=== PATIENT | male | born 1935 | race Caucasian/White ===

== ENCOUNTER 2018-05-08 18:37 | Inpatient (IN) | payer MEDICARE ==
[~2018-05-08] VITALS: Ht 180.3 cm; Wt 68.4 kg
[~2018-05-08 18:37] MED LIST: ASPIR-TRIN325 MG PO; CENTRUM SILVER1 EAC3 PO; CIALIS20 MG PO; CLARITIN10 M2 PO; CO-Q10; COQ-10100 MG PO; FLONASE ALLERG9.9 ML NAS; FLUOXETINE HCL20 MG PO; HYDROCHLOROTHIA25 MG PO; LOSARTAN POTASS50 MG PO; METFORMIN HCL500 M2 PO; OMEGA-3100 MG PO; PRAVACHOL80 MG PO; PRILOSEC OTC20 MG PO; SAW PALMETTO450 MG PO; VITAMIN D-32000 UNI1 PO
--- NOTE | 2018-05-09 00:06 | NUR ---
VITALS DONE AND CHARTED. CHANGED HIS ATTENDS.
--- NOTE | 2018-05-09 00:20 | NUR ---
PT ARRIVED FROM ER ON GOURNEY AND WAS ASSISTED INTO HOSPITAL BED. PT WEARTING 3LPNC AND STATES HE WEARS THIS CHRONICALY AT HOME. PT ASSESSMENT COMPLETED AND PT STATES HE IS COMFORTABLE AFTER BEING GIVEN WARM BLANKETS. CALL LIGHT AND H20 IN REACH.
--- NOTE | 2018-05-09 03:05 | NUR ---
PT ASSISTED IN SITTING UP AT SIDE OF BED TO URINATE. PT VOIDS QS CLEAR YELLOW URINE AND REQUIRED 1 PERSON ASSIST BACK INTO POSITION IN BED. PT REPORTS INCREASED RIB PAIN SO PO OPIOD ADMINISTERED. CALL LIGHT/H20 INR EACH AND PT DENIES FURTHER NEEDS.
--- NOTE | 2018-05-09 04:10 | NUR ---
PT RESTING IN BED EYES CLOSED AND RESPIRATIONS EVEN AND UNLABORED AT 16. PT REMAINS ON 3LPNC AND APPEARS TO BE SLEEPING COMFORTABLY. PT ALERT TO VOICE AND ASSESSMENT COMPLETED. CALL LIGHT AND H20 IN REACH AND PT DENIES PAIN/SOB OR HAVING ANY NEEDS AT THIS TIME.
--- NOTE | 2018-05-09 06:28 | NUR ---
PT NEW ADMIT FROM ER. HERE FOR FALL SUSTAINED 5-7 DAYS AGO. PT REPORTS TRIPPING OVER DOG. DIAGNOSED WITH BILAT RIB FRACTURES AND DEHYDRATION. PT HAS RIB PAIN WITH MOVEMENT.PT ON 3LPNC THIS IS CHRONIC. PAIN MANAGED WITH PRN PO OPIOD. PT HAS BILAT ATELECTASIS SO WAS ENCOURAGED IN USE OF INCENTIVE SPIROMETER. PT HAS HISTORY OF PAST CVA WITH RESIDUAL DYSPHAGIA WITH COUGHING AFTER EATING, PT STATES THE RIB PAIN WITH COUGHING CAUSED HIM TO EAT LESS AND REPORTS GENERALIZED WEAKNESS. PT APPEARED TO HAVE SLEPT WELL THROUGH THE NIGHT. VOIDS QS CLEAR YELLOW URINE OUTPUT. PT HAS NOT YET BEEN OUT OF BED SINCE ADMISSION. 20 GA IV TO LAC INFUSING D5 1/2 NS AT 100ML/HR. PT IS TYPE 2 DIABETIC AND HAS ACHS BS CHECKS. KEEP ENCOURAGING PT TO USE IS 10X PER HOUR WHILE AWAKE.
--- NOTE | 2018-05-09 07:05 | NUR ---
SHIFT REPORT RECEIVED FROM STUNT DOUBLE RN AT BEDSIDE. PATIENT APPEARS SLEEPING, RESPIRATIONS ARE EVEN AND UNLABORED. CALL LIGHT WITHIN REACH.
--- NOTE | 2018-05-09 07:51 | NUR ---
MORNING ASSESSMENT AND ROUTINE MEDICATIONS ADMINISTERED AT THIS TIME. PATIENT IS RESTING IN BED AND WATCHING TELEVISION. CALL LIGHT WITHIN REACH.
--- NOTE | 2018-05-09 08:00 | NUR ---
PATIENT COMPLAINED OF INCREASED PAIN IN THE BILATERAL RIBS. 1 NORCO ADMINISTERED, PATIENT IS NOW IN CHAIR WITH 1 PERSON ASSIST AND IS EATING BREAKFAST. PATIENT DENIES FURTHER REQUESTS, CALL LIGHT WITHIN REACH.
--- NOTE | 2018-05-09 08:07 | NUR ---
THIS FILLING STATION EQUIPMENT MECHANIC OFFERED AM CARE TO PATIENT, PATIENT REFUSED CARE. RN IN ROOM. SHOWER OPTIONS DISCUSSED WITH PATIENT, PATIENT REFUSING AT THIS TIME. THIS FILLING STATION EQUIPMENT MECHANIC DISCUSSED WITH RN TO REATTEMPT AT A LATER TIME. NO OTHER NEEDS AT THIS TIME. CALL LIGHT IN REACH.
[2018-05-09] MEDS ORDERED: PROZAC10 MG PO (09:15)
--- NOTE | 2018-05-09 09:41 | NUR ---
SPOKE WITH PATIENT IN ROOM. PATIENT IS UP IN CHAIR EATING BREAKFAST WITHOUT HELP. PATIENT LIVES ALONE. STATES HE COULDN'T GET OUT OF BED DUE TO PAIN IN HIS "RIBS". DISCUSSED THAT HE IS WEAK AND WILL BE GETTING THERAPY ORDERED TO SEE WHAT HE NEEDS TO RETURN TO HIS NORMAL STATE OF HEALTH. HE IS IN AGREEMENT THAT HE IS VERY WEAK. DISCUSSED OPTIONS FOR DISCHARGE. PATIENT REFUSES TO CONSIDER REHAB STAY AND SNF. HE STATES HIS DAUGHTER WANTS HIM TO COME HOME WITH HER AND STAY UNTIL HE IS STRONGER. HE STATES HIS DAUGHTER IS A NURSE AND LIVES LOCALLY. PATIENT STATES HE STILL DRIVES AND IS ABLE TO TAKE CARE OF HIMSELF NORMALLY. NO FURTHER QUESTIONS AT THIS TIME.
--- NOTE | 2018-05-09 10:25 | NUR ---
NEW TELEMETERY BATTERY REPLACED. PATIENT IN SINUS RHYTHM. CALL LIGHT ELISA GILLESPIE.
--- NOTE | 2018-05-09 10:50 | NUR ---
PATIENT'S DAUGHTER LEIGH ANN CALLED TO RECIEVE UPDATE. LEIGH ANN WILL BE VISITNG PATIENT SOON AND WILL BE BRINGING PATIENT'S GLASSES.
--- NOTE | 2018-05-09 12:31 | NUR ---
MET WITH DAUGHTER OF PT. SHE IS CONCERNED ABOUT CARE FOR HER FATHER AFTER [facility]. PT HAS LOOKED INTO [facility] AND SAID HE WOULD GO THERE-SHE NEEDED ME TO GIVE HER PERMISSION TO LET HIM GO THERE RATHER THAN HAVE HIM IN HER HOME. SHE REQUESTED PRAYER, AND I PASSED THIS ON TO DIAMANTE FOR HELP WITH DC. WILL FOLLOW NEEDED
--- NOTE | 2018-05-09 12:32 | NUR ---
SPOKE WITH PATIENT AND DAUGHTER IN ROOM. PATIENTS DAUGHTER STATES SHE DOES NOT HAVE ABILITY FOR PATIENT TO COME TO HER HOUSE AT THIS TIME. SHE STATES PATIENT HAS LOOKING INTO MOVING TO [facility]. PATIENT STATES THAT WAS TRUE. HE THEN ASKED HER A FEW TIMES "I THOUGHT YOU SAID I SHOULD COME THERE" DAUGHTER EXPLAINED THAT SHE IS WORKING VARNISHING UNIT TOOL SETTER AND NO ONE WOULD BE AROUND ALL THE TIME AND HIS BEST PLACE WOULD BE [facility] THEN THEY CAN VISIT ANYTIME BUT HE WOULD HAVE OTHERS AROUND WHEN HE NEEDS HELP. PATIENT RELUCTANT TO AGREE. STILL REFUSING SKILLED REHAB FACILITY. DAUGHTER ASKED TO TALK WITH ME OUTSIDE OF ROOM. SHE STATES PATIENTS HOME IS FILLED AROUND WASTE HIGH WITH [place]BRIS. SHE STATES HE LAYS ON TOP OF GARBAGE. HE HAS URINE BOTTLES EVERYWHERE. SHE STATES HE HAS A VERY SMALL PATH BUT YOU HAVE TO CLIMB OVER GARBAGE TO GET ANYWHERE. SHE STATES IT IS NOT HEALTHY NOR SAFE. SHE STATES HER IS NOT AGREEABLE TO HER BRINGING PATIENT HOME PERMAMENTLY. SHE STATES SHE IS NOT ON HIS FINANCES OR HAVE POA. SHE STATES PATIENT KEEPS TELLING HER HE WANTS TO DO THIS, BUT NEVER FINISHES THE PLAN. WE DISCUSSED THAT HIS THERAPY RESULTS WILL DETERMINE WHAT HE WILL QUALIFY FOR. I ENCOURAGED HER TO CALL [facility] AND TO CONTINUE TO SPEAK WITH PATIENT IN REGARDS TO THIS. DAUGHTER SANTOSH STATES PATIENT HAS GONE AMA BEFORE, THAT HE KNOWS HE CAN DO THIS SO SHE IS WORRIED HE MIGHT DO THAT ONCE HE THINKS HE FEELS A LITTLE BETTER. I EXPLAINED I COULD NOT STOP HIM FROM THAT. THAT WE WILL CONTINUE TO ENCOURAGE HIM TO STAY UNTIL SAFE DISCHARGE.
--- NOTE | 2018-05-09 12:32 | NUR ---
PATIENT REPORTED PAIN IS CLIMBING AND RATED PAIN A 10/10 WITH MOVEMENT. PATIENT IS RESTING IN CHAIR, WATCHING TELEVISION, AND VISITING WITH DAUGHTER. AFTERNOON ASSESSMENT COMPLETE. CALL LIGHT WITHIN REACH.
[2018-05-09] MEDS ORDERED: PRESERVISION A1 EAC3 PO (12:34)
--- NOTE | 2018-05-09 12:35 | NUR ---
MED REC COMPLETE
--- NOTE | 2018-05-09 14:01 | NUR ---
HUA DHILLON CALLED THIS NUCLEAR ENGINEER TO ASSIST HER IN PATIENT'S ROOM. PATIENT SITTING UP ON FLOOR BY BATHROOM. THIS NUCLEAR ENGINEER CALLED RN AND OTHER NUCLEAR ENGINEER'S FOR ASSISTANCE. PATIENT STATES HE HAD TRIED TO WALK TO RETRIEVE HIS URINAL AND BUMPED INTO THE BED, LANDED ON THE BED, AND SLID ONTO THE FLOOR. PATIENT DENIES HITTING HIS HEAD OR ANY PAIN. PATIENT STATES HE HAD BEEN ON THE FLOOR FOR APPROXIMATELY 5 MINUTES BUT HAD NOT CALLED FOR ASSISTANCE. PATIENT APPEARS TO BE ORIENTED AND DOES NOT SHOW ANY SIGNS OF DISTRESS. THIS NUCLEAR ENGINEER AND MICROARRAY ANALYST, CRYSTAL SHARP, HUA CARVAJAL AND HUA DHILLON ASSISTED PATIENT INTO A SASKIA LIFT AND LIFTED PATIENT OFF OF FLOOR ONTO BED. PATIENT HAD LARGE COFFEE SPILL ON HIS GOWN BUT STATES HE DID NOT GET BURNED THE COFFEE WAS COLD. PATIENT CHANGED INTO CLEAN GOWN, VITALS TAKEN. RN IN ROOM FOR ASSESSMENT. BED ALARM ON AT THIS TIME.
--- NOTE | 2018-05-09 14:11 | NUR ---
I walked by pt room with another staff memeber. pt was on floor. pt was sitting against wall. pt said he was not hurt. pt was told not to move. RN immediately notified. pt lifted back to bed with juan miguel. vitals were takem. Doctor came assest pt. pt is resting in bed safely with bed alarm on. call light within reach.
--- NOTE | 2018-05-09 14:20 | NUR ---
NOTIFIED BY CHEMICAL HANDLER THAT PATIENT HAD FALLEN. FULL PHYSICAL ASSESSMENT SHOWED NO CHANGE IN PHYSICAL STAUS. NO BRUISES, BUMPS, OR EDEMA NOTED FOLLOWING ASSESSMENT. PATIENT IS A/O X3. PATIENT DENIES INCREASE IN BILATERAL RIB PAIN COMPARED TO MORNING ASSESSMENT FINDINGS. PATIENT IS IN BED, CALL LIGHT WITHIN REACH, BED ALARM ON.
--- NOTE | 2018-05-09 15:01 | NUR ---
PATIENT STATES HE HAS NOT URINATED NOR DOES HE FEEL THE NEED TO GO AT THIS TIME. PATIENT REFUSING TO TRY. RN NOTIFIED.
--- NOTE | 2018-05-09 15:45 | NUR ---
DAUGHTER SANTOSH CALLED AND STATED SHE SPOKE WITH [facility] AND THEY CAN EVALUATE HIM ON Saturday. UPDATED STAFF.
--- NOTE | 2018-05-09 16:28 | NUR ---
THIS TIPPLE ENGINEER ASSISTED PATIENT UP INTO SHOWER. PATIENT SHOWERED WITH ASSISTANCE, HAIR SHAMPOOED AND COMBED, PATIENT PERFORMED PERICARE. PATIENT DRESSED IN CLEAN GOWN, BACK IN BED, CALL LIGHT IN REACH, BED ALARM ON. NO OTHER NEEDS AT THIS TIME.
--- NOTE | 2018-05-09 16:30 | NUR ---
ASSESSMENT COMPLETE AT THIS TIME. PATIENT COMPLAINED OF INCREASING PAIN RATED 6/10, 1 NORCO ADMINISTERED. TELEMETERY DISCONTINUED PER MD ORDER. BLOOD SUGAR CHECK WITH RESULTS OF 127, NO INSULIN HUMALOG INDICATED PER SLIDING SCALE. PATIENT RESTING IN CHAIR, CHAIR ALARM ATTACHED.
--- NOTE | 2018-05-09 17:33 | NUR ---
PATIENT SITTING UP IN BEDSIDE RECLINER, EATING DINNER. CHAIR ALARM ON. CALL LIGHT IN REACH. NO OTHER NEEDS AT THIS TIME.
--- NOTE | 2018-05-09 18:00 | NUR ---
PATIENT IS A/O X3. PATIENT HAS GENERALIZED WEAKNESS AND IS VERY SLOW TO MOVE DUE TO BILATERAL RIB FRACTURES. PATIENT RATES PAIN 1/10 WHEN SITTING STILL, BUT PAIN INCREASES DRAMATICALLY WITH MOVEMENT. PO NORCO ADMINISTERED Q4H PRN. PATIENT IS A 1 PERSON ASSIST WITH USE OF FWW. PATIENT IS ON ADA DIET, BLOOD SUGARS HAVE BEEN WNL OR SLIGHTLY ELEVATED THROUGHOUT THE DAY. PATIENT FELL IN THE AFTERNOON, BUT NO EDEMA, BRUISES, OR BUMPS WERE NOTED. PATIENT ALSO DENIED INCREASED RIB PAIN FOLLOWING HIS FALL.
--- NOTE | 2018-05-09 20:45 | NUR ---
PT RESTING IN CHAIR, PT ASSISTED INTO BED WITH ONE PERSON ASSIST. ASSESSMENT COMPLETED. PT GIVEN FRESH WATER AND CALL LIGHT INR EACH. FAMILY AT BEDSIDE.
--- NOTE | 2018-05-09 22:20 | NUR ---
pt assisted in sitting up at bedside to use urinal. pt voids clear yellow urine and assisted back into bed. call light/h20 inr each.
--- NOTE | 2018-05-09 23:06 | NUR ---
PT RESTING SUPINE IN BED, EYES CLOSED AND APPEARS TO BE SLEEPING COMFORTABLY.
--- NOTE | 2018-05-10 02:08 | NUR ---
PT ASSISTED TO STAND AND USE THE URINAL AT BEDSIDE. PT REQUESTS JELLO AND CRACKERS. SF JELLO AND 1 PACK OF CRACKERS PROVIDED. DENIES FURTHER NEEDS AT THIS TIME. CALL LIGHT WITHIN REACH.
--- NOTE | 2018-05-10 04:15 | NUR ---
PT ASSISTED UP TO USE RESTROOM WITH 2PERSON ASSIST. PT VOIDS CLEAR YELLOW URINE IN HAT. PT ASSISTED INTO CHAIR PER HIS REQUEST. CHAIR ALARM PLACED ON PT. CALL LIGHT AND H20 IN REACH.
--- NOTE | 2018-05-10 05:25 | NUR ---
IN TO CHECKE ON PT D/T CHAIR ALARM ALARMING. PT STATES HE IOS READY TO GET BACK INTO BED. PT REMINDID TO USE CALL LIGHT WHEN HE WOULD LIKE TO GET UP SO HE CAN BE ASSITED. PT ASSISTED BACK INTO BED AND DENIES HAVING ANY FURHTER REQUESTS. IVF CONTINUES TO INFUSE. CALL LIGHT/H20 IN REACH AND BED ALARM ON.
--- NOTE | 2018-05-10 06:06 | NUR ---
PT VERBALIZES WHAT HE WOULD LIKE FOR BREAKFAST. PT ALSO STATES HE TAKES LOSARTAN AND HCTZ AT HOME CHRONICALLY FOR BP. WILL NOTIFY DAYSHIFT RN OF THIS. CALL LIGHT AND H20 IN REACH. PT DENIES FURTHER NEEDS.
--- NOTE | 2018-05-10 06:08 | NUR ---
PT SLEPT ON AND OFF THROUGH THE NIGHT, UP MULTIPLE TIMES TO VOID. PT REPORTS INCREASED PAIN WITH MOVEMENT AND DOES NOT ALWAYS USE CALL LIGHT APROPRIATLEY SO BED ALARM AND CHAIR ALARM WERE USED. PT VOIDED QS CLEAR YELLOW U/O. MAINTENANCE FLUIDS CONTINUE TO INFUSE. PT REMAINS 1 PERSON ASSIST. Heidi ANN RA DENIES SOB,NAUSEA. PT CONTINUES ACHS BLOOD GLUCOSE CHECKS AND WAS 179 AT HS BS CHECK AND RECEIVED 3 UNITS SS INSULIN.
--- NOTE | 2018-05-10 07:22 | NUR ---
SHIFT REPORT RECEIVED FROM HYPO SPLASHER RN AT BEDSIDE. PATIENT SITTING IN CHAIR WATCHING TELEVISION. TAG ALARM ON AND DENIES FURTHER REQUESTS AT THIS TIME. CALL LIGHT WITHIN REACH.
--- NOTE | 2018-05-10 08:30 | NUR ---
MORNING ASSESSMENT AND ROUTINE MEDICATIONS ADMINISTERED. PATIENT RESTING IN CHAIR, EATING BREAKFAST AND WATCHING TELEVISION, CALL LIGHT WITHIN REACH.
--- NOTE | 2018-05-10 08:34 | NUR ---
MORNING BLOOD GLUCOSE RESULT OF 141. ONE UNIT OF INSULIN HUMALOG ADMINISTERED.
--- NOTE | 2018-05-10 08:50 | NUR ---
PATIENT COMPLAINED OF INCREASING PAIN. PAIN RATED A 3/10, BUT IS "WORSE WHENEVER I MOVE". 1 NORCO ADMINISTERED. CALL LIGHT WITHIN REACH.
--- NOTE | 2018-05-10 09:20 | NUR ---
MORNING ASSESSMENT AND ROUTINE MEDICATIONS ADMINISTERED AT THIS TIME. IN ROOM WITH PATIENT. PATIENT'S RESPIRATIONS CONTINUE TO BE EVEN AND UNLABORED. PATIENT OPENS EYES TO COMMAND AT TIMES, BUT DOES NOT COMPLY WITH ALL REQUESTS. SCHEDULED MIRALAX AND COLACE NOT ADMINISTERED. PATIENT HAD HAD RECENT BOWEL MOVEMENT. CALL LIGHT WITHIN REACH.
--- NOTE | 2018-05-10 10:19 | NUR ---
pt finished working with PT and is now back in bed resting safely with call light in reach and bed alarm on.
--- NOTE | 2018-05-10 11:00 | NUR ---
PATIENT RESTING IN CHAIR, WATCHING TELEVISION. CALL LIGHT WITHIN REACH. NO FURTHER REQUESTS AT THIS TIME.
--- NOTE | 2018-05-10 12:50 | NUR ---
PATIENT COMPLAINING OF INCREASING PAIN. PAIN RATED A 3/10 BUT INCREASES WITH MOVEMENT. ONE NORCO ADMINISTERED. LUNCH BLOOD GLUCOSE RESULT OF 145, ONE UNIT OF INSULIN HUMALOG ADMINISTERED. PATIENT EATING LUNCH, CALL LIGHT WITHIN REACH.
--- NOTE | 2018-05-10 13:03 | NUR ---
SPOKE WITH PATIENT'S DAUGHTER LEIGH ANN OVER THE PHONE AND GAVE VERBAL UPDATE PER DAUGHTER'S REQUESTS. ALL QUESTIONS ANSWERED APPROPERIATELY.
--- NOTE | 2018-05-10 14:00 | NUR ---
PATIENT RESTING IN BED WATCHING TELEVISION. CALL LIGHT WITHIN REACH. BED ALARM ON.
--- NOTE | 2018-05-10 14:30 | NUR ---
AFTERNOON ASSESSMENT COMPLETE. NO CHANGES NOTED FROM MORNING ASSESSMENT. PATIENT IS A/O X4. LUNG SOUNDS ARE CLEAR IN BILATERAL UPPER AND LOWER LOBES. S1 AND S2 NOTED. RADIAL AND PEDAL PULSES ARE STRONG BILATERALLY. PATIENT RATES PAIN AT 1/10. PATIENT IN BED WATCHING TELEVISION, BED ALARM ON.
--- NOTE | 2018-05-10 14:48 | NUR ---
HELPED CHARGE NURSE MOVE PATIENT FROM ROOM 119 TO ROOM 111. BED ALARM ON ALSO PRESSURE ALARM IS PLACE IN HIS CHAIR.
--- NOTE | 2018-05-10 14:57 | NUR ---
PATIENT REFUSED SHOWER.
--- NOTE | 2018-05-10 16:03 | NUR ---
BROUGHT HIM SOME COFFEE AND ICE WATER. PATIENT IS NOW SITTING UP IN HIS CHAIR. WITH PRESSURE ALARM ON.
--- NOTE | 2018-05-10 17:17 | NUR ---
DINNER TIME BLOOD GLUCOSE RESULT OF 176. THREE UNITS OF INSULIN HUMALOG ADMINISTERED. PATIENT IN CHAIR EATING DINNER AND WATCHING TELEVISION, TAG ALARM ON. PATIENT DENIES FURTHER NEEDS. CALL LIGHT WITHIN REACH.
--- NOTE | 2018-05-10 17:48 | NUR ---
PATIENT HAS BEEN A/O X4 ALL SHIFT. LUNG SOUNDS CLEAR BILATERALLY IN UPPER AND LOWER LOBES. S1 AND S2 NOTED. BOWEL TONES ACTIVE IN ALL FOUR QUADRANTS. PATIENT REPORTS PAIN IS TOLERABLE WHEN STILL, PAIN EXACERBATES WITH MOVEMENT. PO NORCO Q4H PRN. BLOOD SUGARS HAVE BEEN SLIGHTLY ELEVATED, NEEDING 1-3 UNITS OF INSULIN HUMALOG. PATIENT DISCONNECTED HIS CHAIR ALARM ONCE AND AMBULATED TO HIS BED WITHOUT STAFF ASSISTANCE. PATIENT THEN TRANSFERED TO ROOM CLOSER TO NURSING STATION. PATIENT REMAINS ON ADA DIET AND IS A 1 PERSON ASSIST. PATIENT HAS YET TO HAVE A BOWEL MOVEMENT, 200 ML ORAL CITRATE OF MAGNESIA ADMINISTERED.
--- NOTE | 2018-05-10 19:10 | NUR ---
REPORT RECEIVED FROM UBALDO ROJAS. PT UP AT BEDSIDE USING URINAL, SLIDE FASTENER CHAIN ASSEMBLER IN TO ASSIST PATIENT AND PT ASSISTED TO CHAIR PER HIS REQUEST. CHAIR ALARM IN PLACE. CALL LIGHT AND H20 IN REACH. PT DENIES FURHTER NEEDS, STATES PAIN IS TOLERABLE.
--- NOTE | 2018-05-10 20:30 | NUR ---
PT RESTING IN CHAIR WITH CHAIR ALARM ON AND CALL LIGHT IN REACH. ASSESSMENT COMPLETED. PT DENIES NEEDS AT THIS TIME STATES PAIN IS TOLERABLE.
--- NOTE | 2018-05-10 22:35 | NUR ---
HELPED PATIENT GO TO BED FROM CHAIR.
--- NOTE | 2018-05-10 22:39 | NUR ---
PT RESTING IN BED, CALL LIGHT/H20 IN REACH AND PT APPEARS TO BE SLEEPING COMFORTABLY.
--- NOTE | 2018-05-11 02:20 | NUR ---
PT ASSISTED UP TO USE URINAL AND THEN BACK INTO BED. BED ALARM ON AND CALL LIGHT INR EACH. ASSESSMENT COMPLETED. FRESH ICE WATER AT BEDSIDE. NO NEEDS VOICED.
--- NOTE | 2018-05-11 04:40 | NUR ---
PT RESTING SUPINE IN BED, CALL LIGHT IN REACH. PT APPEARS TO BE SLEEPING COMFORTABLY.
--- NOTE | 2018-05-11 04:44 | NUR ---
PT HAD AN UNEVENTFUL NIGHT AND APPEARED TO SLEEP COMFORTABLY MOST OF THE NIGHT. PT HAS NOT HAD A BM SINCE 05/07/18 AND RECEIVED MAG CITRATE AFTERNOON OF 05/10/18 WITH NO RESPONSE YET. PRN PO NORCO HAS KEPT PAIN TOLERABLE. PT CONTINUES TO RECEIVE IV MAINTENANCE FLUIDS AT 100ML/HR. ACHS BS CHECKS. 1 PERSON SBA. CONSIDER SUPPPOSITORY IF NO BM IN AM. CHAIR AND BED ALARMS IN USE PT SELDOM CALLS FOR ASSISTANCE WHEN ATTEMPTING TO GET UP.
--- NOTE | 2018-05-11 07:20 | NUR ---
RECIEVED REPORT IN ROOM FROM CRYSTAL SOLORZANO. PT SITTING UP CHAIR, AWAKE, ALERT. REMINDED PT NOT TO GET UP WITHOUT A MEMBER OF NURSING STAFF WITH HIM. PT HAS CHAIR ALARM ON. PERSONAL SUPPLIES AND CALL LIGHT IN REACH.
--- NOTE | 2018-05-11 07:45 | NUR ---
PT SITTING UP IN RECLINER. AM MEDICATIONS GIVEN. GAVE NORCO 5/325 MG 1 TAB PO PRN FOR RIB PAIN 7/10 WITH DEEP BREATHING AND INSENTIVE SPIROMETER USE. PT REPORTED PAIN AT 2/10 AT REST.
--- NOTE | 2018-05-11 08:18 | NUR ---
PT REPORTED ITCHING TO FEET, BUTTOCKS, REQUESTED HYDROCOTISONE CREAM. REPORTED FEELING "STUFFED UP", REQUESTED SALINE NASAL SPARY. ALSO REQUESTED HIS HOME DOSE OF CLARATIN. NOTIFIED DR. HERZOG OF ABOVE NOTED. RECIEVED VORB FOR HYDROCORTISONE CREAM TO FEET AND BUTTOCKS TOPICAL PRN, SALINE NASAL SPRAY PRN, AND FOR CLARATIN 10 MG PO DAILY.
--- NOTE | 2018-05-11 08:51 | NUR ---
PT SITTING UP IN RECLINER. ATE 75% OF BREAKFAST. PHYSICAL THERAPY STAFF IN PT'S ROOM, GOING TO WORK WITH PT.
--- NOTE | 2018-05-11 08:57 | NUR ---
DID BLOOD SUGAR CHECK. PATIENT SITTING UP IN HIS CHAIR.
--- NOTE | 2018-05-11 09:10 | NUR ---
PT UP AMBULATING IN HALLS WITH STANDBY ASSIST WITH PHYSICAL THERAPY STAFF. TOLERATED WELL. IS NOW BACK IN ROOM.
--- NOTE | 2018-05-11 10:06 | NUR ---
DR. HERZOG IN TO SEE PT. PT'S DAUGHTER AND SON IN LAW AT PT'S SIDE. DISCUSSED PLAN OF CARE WITH PT. DR. HERZOG DISCUSSED POSSIBLE DISCHARGE TO AN ASSISTED LIVING FACILITY, AND RECOMMENDED THAT PT AND HIS FAMILY DISCUSS THIS POSSIBILITY.
--- NOTE | 2018-05-11 11:03 | NUR ---
TOOK PATIENT INTO THE BATHROOM AROUND 1000 THIS MORNING. THAN SET HIM BACK IN HIS CHAIR. CHANGED LINENS AND PUT COUPLE OF THE CHUCKS ON HIS BED.
--- NOTE | 2018-05-11 11:14 | NUR ---
PT UP TO BATHROOM WITH ONE PERSON STANDBY ASSIST. PT SAT ON TOILET, ATTEMPTED TO HAVE BM, NO RESULTS. PER HUA CABRALES, SHE ASKED PT TO TAKE A SHOWER, BUT PT DECLINED. PT IS NOW SITTING UP IN RECLINER, PERSONAL SUPPLIES AND CALL LIGHT IN REACH.
--- NOTE | 2018-05-11 11:40 | NUR ---
DID PATIENTS BLOOD SUGAR, IT WAS 92, WILL NOTIFY NURSE HE IS CURRENTLY EATING HIS LUNCH
--- NOTE | 2018-05-11 11:44 | NUR ---
PT SITTING UP IN RECLINER, EATING LUNCH, WATCHING BASEBALL ON TV. PERSONAL SUPPLIES IN REACH, IS CALL LIGHT. PT VOIDED 100 CC CLEAR YELLOW URINE IN URINAL. NO BM THUS FAR.
--- NOTE | 2018-05-11 12:09 | NUR ---
PATIENT REFUSED SHOWER X3 THIS CNA2 ASKED ONCE AND CNA2 KERON ASKED TWICE HIM REFUSING ALL TIMES
--- NOTE | 2018-05-11 14:58 | NUR ---
PT SITTING UP IN RECLINER, SLEEPING SOUNDLY. CHAIR ALARM ON. PERSONAL SUPPLIES AND CALL LIGHT IN REACH. NO S/S DISRTESS OR DISCOMFORT.
--- NOTE | 2018-05-11 15:22 | NUR ---
PT AROUSED, ASSISTED TO REPOSITION IN RECLINER. PT C/O INCREASED PAIN TO BILATERAL RIBS WITH MOVEMENT. NOW AT REST, RATES PAIN 3/10. GAVE NORCO 5/325 MG 1 TAB PO PRN. PT HAS PERSONAL SUPPLIES IN REACH. VOIDED URINE IN URINAL. CALL LIGHT IN PT'S LAP. PT DENIES OTHER NEEDS.
--- NOTE | 2018-05-11 17:22 | NUR ---
PT SITTING UP IN RECLINER, EATING SOUP FOR DINNER. USED PILLOW TO BRACE LEFT SIDE WHILE HE COUGHED. REPORTED PAIN TO RIBS 2-3/10, REPORTED PAIN WITH COUGH 3/10, DENIED NEED FOR ANALGESIC AT THIS TIME. CHAIR ALARM ON, PERSONAL SUPPLIES AND CALL LIGHT IN REACH. PT SALINE LOCKED PER DR. FERNANDEZ'S ORDER. PT RECIEVED 1 UNIT HUMALOG SQ FOR BG OF 162.
--- NOTE | 2018-05-11 18:10 | NUR ---
PT HAD IVF INFUSING MOST OF SHIFT, SALINE LOCKED THIS EVENING PER DR. FERNANDEZ. PT ON 1800 ADA DIET, TOLERATED WELL. MOST RECENT BG WAS 162, RECIEVED 1 UNIT HUMALOG SLIDING SCALE INSULIN. PT UP WITH 1 PERSON ASSIST, AMBULATED IN [place] WITH PHYSICAL THERAPY, WELL WITH NURSING STAFF, AND SAT UP IN RECLINER MOST OF SHIFT. PT REPORTED PAIN TO RIBS, ESPECIALLY LEFT SIDE, TOOK NORCO PRN FOR THIS. PT REPORTED GOOD PAIN RELIEF WITH NORCO, DENIED NEED FOR FURTHER ANALGESICS THUS FAR. PT DID ATTEMPT TO SELF TRANSFER ONCE THIS SHIFT, STANDING TO USE URINAL AT CHAIR SIDE, CHAIR ALARM SOUNDED, NURSING STAFF TO PT'S SIDE, AND PT CALLED APPROPRIATELY OTHER THAN THAT INSTANCE, BUT CHAIR AND BED ALARM USED THROUGHOUT SHIFT DUE TO HIGH FALL RISK. PT'S LAST BOWEL MOVEMENT WAS REPORTED 05/07/18, SO BISACODYL SUPPOSITORY WAS GIVEN THIS SHIFT. THUS FAR, PT HAS HAD A LARGE AMOUNT OF GAS, AND ONE SMALL LOOSE/SOFT BM. URINE OUTPUT QUANTITY SUFFICIENT. MORPHINE IV WAS D/C'D, AND NEW ORDER FOR OXYCODONE PRN WAS ADDED, BUT NOT YET NEEDED. PT WILL HAVE A BNP DRAWN 05/12/18 AM.
--- NOTE | 2018-05-11 19:25 | NUR ---
REPORT RECEIVED FROM UBALDO RN. PT UP IN CHAIR, CALL LIGHT AND H20 IN REACH. BED ALARM ON NAD PT DENIES NEEDS. ASSESSMENT COMPLETED.
--- NOTE | 2018-05-11 21:46 | NUR ---
AMBULATED PATIENT AROUND THE HALLWAY X2. PATIENT IS BACK IN THE CHAIR. ALARM ON. SIDE TABLE AND CALL LIGHT WITHIN REACH. ICE WATER REFILLED. NO OTHER NEEDS AT THIS TIME.
--- NOTE | 2018-05-12 01:12 | NUR ---
SINCE AMBULATING IN HALLS WITH SINTA,CAR RENTAL MANAGER PT HAS APPEARED TO BE RESTING COMFORTABLY IN CHAIR WITH CHAIR ALARM ON AND CALL LIGHT NAD H20 IN REACH. PT REMAINS IN VIEW OF NURSING STATION.
--- NOTE | 2018-05-12 02:55 | NUR ---
PT ASSISTED TO RESTROOM WITH 1 PERSON SBA. PT ASSISTED BACK INTO CHAIR. PT STATES "I LIKE SLEEPING IN THE CHAIR BETTER BECAUSE IT'S EASIER TO GET IN AND OUT OF." PT STTAES HE HAS YET TO HAVE A BM BUT IS PASSING FLATUS. PT DENIES NEED FOR ENEMA AT THIS TIME. CHAIR ALRM ON AND CALL LIGHT/H20 IN REACH. NO FURHTER NEEDS VOICED.
--- NOTE | 2018-05-12 07:12 | NUR ---
PT IN BED, SAT UP TO EDGE OF BED. RATED PAIN TO RIBS, ESPECIALLY TO LEFT RIBS 10/10. GAVE OXYCODONE 5 MG PO PRN. PT HAS PERSONAL SUPPLIES AND CALL LIGHT IN REACH. BED ALARM ON.
--- NOTE | 2018-05-12 07:20 | NUR ---
PT APPEARED TO HAVE SLEPT WELL THROUGHT THE NIGHT. . SBA, SL'D, VOIDING QS CLEAR YELLOW URINE. PT'S BP WAS ELEVATED THIS AM SO DR FERNANDEZ ORDERED PT'S HOME [place] AND HCTZ WAS GIVEN EARLY. PT DID REPORT OF ITCHING TO BILAT TOPPS OF FEET AND EXPRESSED HIS CONCERN OF BEING ALLERGIC TO HIS NO SLIP SOCKS. HYDROCORTISONE CREAM WAS APPLIED PER HIS REQUEST AND DAYSHIFT RN WAS NOTIFIED OF PT'S CONCERN. PT AWARE THAT HE MUST WEAR TRACTION SOCKS OR SLIPPERS WHILE AMBULATING. PT RECEIVING PRNPO OPIODS FOR PAIN MANAGEMENT. ENCOURAGE IS USE 10XPER HOUR WHILE AWAKE. CHAIR AND BED ALARM USE ADN PT REMAINS CLOSE TO NURSES STATION DUE TO HIGH CALL RISK. PT DID CALL APPROPRIATLEY THROUGH THE NIGHT. NO BM THIS SHIFT.
--- NOTE | 2018-05-12 07:25 | NUR ---
PT UP TO RECLINER, CHAIR ALARM ON. PT SETTING UP, EATING BREAKFAST. BG CHECK 126. PERSONAL SUPPLIES AND CALL BUTTON IN REACH.
--- NOTE | 2018-05-12 08:36 | NUR ---
PT HAS ORDER FOR COZAAR 25 MG PO ONCE. ASSESSED PT'S BP AND PULSE, 122/68, PULSE 81. BP HAD BEEN ELEVATED, WITH SBP IN 170s EARLIER THIS AM. NOTIFIED DR. FERNANDEZ OF CURRENT BP, ASKED IF HE WANTED PT TO STILL RECIEVE THE ORDERED COZAAR 25 MG PO ONCE, DR. FERNANDEZ GAVE VERBAL ORDER TO HOLD THIS ORDERED DOSE.
--- NOTE | 2018-05-12 08:40 | NUR ---
PATIENT UP IN CHAIR FOR BREAKFAST. LINENS CHANGED. PATIENT NOW BACK TO BED 1 PERSON ASSIST. CALL LIGHT IN REACH. NO FURTHER NEEDS AT THIS TIME.
--- NOTE | 2018-05-12 09:00 | NUR ---
OFFERED TO ASSIST PT WITH SHOWER, ENCOURAGED PT TO SHOWER, BUT PT DECLINED. ASKED PT IF HE WOULD ALLOW A BED BATH LATER TODAY, PT STATED THAT HE WOULD.
--- NOTE | 2018-05-12 09:19 | NUR ---
PT UP WITH STANDBY ASSIST TO BATHROOM, USED BETANCOURT AND COUNTERS FOR BALANCE, SO USED FWW WITH STANDBY ASSIST AFTER THIS. PT STILL UNSTEADY ON FEET. DENIED LIGHTHEADEDNESS OR DIZZINESS. PT TOOK AM MEDICATIONS. PT THEN UP, AMBULATED IN HALLS WITH FWW WITH STANDBY ASSIST WITH THIS RN. PT WALKED AROUND "LOOP" X 4, AND TOLERATED WELL. RATED PAIN TO RIBS WHILE UP AND AMBULATING 2/10. PT BACK TO ROOM TO RECLINER, AND PHYSICAL THERAPY STAFF IN TO WORK WITH PT. PT UP WITH FWW, AMBULATED WITH PHYSICAL THERAPY STAFF TO THERAPY ROOM.
--- NOTE | 2018-05-12 10:14 | NUR ---
PATIENT UP IN CHAIR WATCHING TV. FRESHWATER GIVEN. CALL LIGHT IN REACH. NO FURTHER NEEDS AT THIS TIME.
--- NOTE | 2018-05-12 10:53 | NUR ---
PLACED NEW IV, 20 G TO LEFT FOREARM ON SECOND ATTEMPT. FIRST ATTEMPT WAS TO RIGHT FOREARM, UNSUCCESSFUL. NEW IV PLACED FOR ROUTINE IV ROTATION. IV TO RAC D/C'D WNL. PT TOLERATED IV START WELL.
--- NOTE | 2018-05-12 10:55 | NUR ---
PT SITTING UP IN RECLINER, CHAIR ALARM IN PLACE. DR. FERNANDEZ IN TO SEE PT. NOTIFIED DR. FERNANDEZ THAT PT HAD A BM 05/07/18, THEN HAD A SMALL BM 05/11/[address] FERNANDEZ STATED THAT WE WILL START SENNA, AND TO GIVE PT A SECOND SUPPOSITORY.
--- NOTE | 2018-05-12 11:01 | NUR ---
RECIEVED VORB FOR SENNOSIDES 2 TABS PO BID FROM DR. FERNANDEZ.
--- NOTE | 2018-05-12 11:23 | NUR ---
GAVE PT BISACODYL SUPPOSITORY NH PRN CONSTIPATION. DID NOT FEEL STOOL IN RECTAL VAULT. PT GIVEN 4 OUNCES OF PRUNE JUICE PER HIS REQUEST. PT SITTING UP IN RECLINER EATING LUNCH AT THIS TIME, PERSONAL SUPPLIES AND CALL LIGHT IN REACH.
--- NOTE | 2018-05-12 12:43 | NUR ---
PT UP WITH FWW WITH STANDBY ASSIST, AMBULATED IN HALLS WITH THIS RN. WALKED AROUND "LOOP" X 6. PT REPORTED PAIN TO RIBS 4/10 AT REST, AND 8/10 WHEN GETTING UP OR SITTING DOWN. PT NOW SITTING UP IN RECLINER, CHAIR ALARM ON. GAVE NORCO 5/325 MG 1 TAB PO PRN. PERSONAL SUPPLIES AND CALL LIGHT IN REACH.
--- NOTE | 2018-05-12 13:50 | NUR ---
PATIENT RESTING IN BED WATCHING TV. FRESHWATER GIVEN. CALL LIGHT IN REACH. NO FURTHER NEEDS AT THIS TIME.
--- NOTE | 2018-05-12 14:21 | NUR ---
PT IN BED. PERSONAL SUPPLIES AND CALL LIGHT IN REACH. BED ALARM ON. PT RESTING QUIETLY WITH EYES CLOSED.
--- NOTE | 2018-05-12 16:16 | NUR ---
PT SITTING UP IN RECLINER. PT'S DAUGHTER AND SON IN LAW AT BEDSIDE. PT RATED PAIN TO RIBS 2/10. GAVE SCHEDULED ACETAMINOPHEN 1000 MG PO. PERSONAL SUPPLIES AND CALL LIGHT IN REACH. DENIED OTHER NEEDS.
--- NOTE | 2018-05-12 17:04 | NUR ---
PT SITTING UP IN RECLINER, FAMILY AT SIDE. PT EATING DINNER. HAS PERSONAL SUPPLIES AND CALL LIGHT IN REACH.
--- NOTE | 2018-05-12 17:37 | NUR ---
PATIENT SITTING UP IN CHAIR. RN IN ROOM. FRESHWATER GIVEN. CALL LIGHT IN REACH. NO FURTHER NEEDS AT THIS TIME.
--- NOTE | 2018-05-12 17:48 | NUR ---
CALLED DR. FERNANDEZ, DISCUSSED PT'S BOWEL. NOTIFIED HIM THAT PT HAD A SMALL BM FOLLOWING HIS BISACODYL SUPPOSITORY THIS SHIFT, THAT HIS BOWEL TONES ARE ACTIVE TO HYPERACTIVE, AND THAT PT REPORTS THAT HE DOES NOT FEEL UNCOMFORTABLE, BUT THAT HE DOES FEEL BLOATED. ASKED DR. FERNANDEZ IF HE WANTED TO ORDER AN ENEMA, DR. FERNANDEZ STATED THAT HE DID NOT AT THIS POINT, AND THAT PT COULD HAVE ANOTHER PRN BISACODYL SUPPOSITORY IF NEEDED TOMORROW. ALSO DISCUSSED PT'S PAIN MANAGEMENT MEDICATIONS WITH DR. FERNANDEZ, ASKED IF HE WANTED PT TO CONTINUE TO RECIEVE NORCO 5/325 MG PRN WELL ACETAMINOPHEN [address] FERNANDEZ STATED THAT HE WOULD D/C THE NORCO, AND CHANGE PT'S CURRENT ORDER FOR OXYCODONE FOR PAIN MANAGEMENT.
--- NOTE | 2018-05-12 18:06 | NUR ---
NOTIFIED PT OF DISCUSSION WITH DR. FERNANDEZ, AND THAT HIS ORDER FOR NORCO WAS DISCONTINUED, AND HIS ORDER FOR OXYCODONE WAS CHANGED. PT VERBALIZED UNDERSTANDING. RATED PAIN TO RIBS 2/10, DENIED NEED FOR PAIN MEDICATION AT THIS TIME. PT USED INSENTIVE SPIROMETER, GOT UP TO 1250, AND DID DEEP BREATHING. PT SITTING UP IN RECLINER, CHAIR ALARM ON, PERSONAL SUPPLIES AND CALL LIGHT IN REACH. PT DENIED NEEDS.
--- NOTE | 2018-05-12 18:08 | NUR ---
PT UP WITH STANDBY ASSIST WITH FWW. CONTINUED TO USE CHAIR AND BED ALARM THROUGHOUT SHIFT. PT ALERT, ORIENTED, BUT REPORTED THAT IF HIS ALARM WAS NOT ON HE WOULD BE GETTING UP ALONE. EDUCATION REGARDING FALL PRECAUTIONS PROVIDED. PT TOOK OXYCODONE 5 MG PO PRN AT 0711, AND NORCO 5/325 MG 1 TAB PO PRN AT 1241 FOR C/O INCREASED PAIN TO RIBS, AND REPORTED ADEQUATE PAIN CONTROL WITH THESE. DR. FERNANDEZ CHANGED PT'S PAIN MEDICATIONS THIS SHIFT, D/C'D NORCO, INCREASED OXYCODONE TO 5-15 MG PO Q 4 HOURS PRN. PT ON RA, LUNGS CTA, BUT DIMINISHED IN BASES. PT USED INSENTIVE SPIROMETER, AND DID DEEP BREATHING. PT C/O FEELING BLOATED, RECIEVED BISACODYL 10 MG NM PRN CONSTIPATION, HAD A SMALL BM. BOWEL TONES ACTIVE TO HYPERACTIVE, PASSING FLATUS, DR. FERNANDEZ AWARE. PT TO RECIEVE SENNA THIS EVENING. DR. FERNANDEZ STATED THAT PT MAY HAVE ANOTHER BISACODY SUPPOSITORY TOMORROW IF NEEDED FOR CONSTIPATION. PT AMBULATED IN HALLS X 3 THIS SHIFT, TOLERATED WELL.
--- NOTE | 2018-05-12 19:02 | NUR ---
REPORT RECEIVED FROM CRYSTAL ALVARADO. PT RESTING IN CHAIR, APPEARS COMFORTABLE. PT REQUESTS AND RECEIVES ASSISTANCE TO RESTROOM. CALL LIGHT IN REACH. HUA GONZALEZ IN TO ASSIST PT BACK TO BED.
--- NOTE | 2018-05-12 19:35 | NUR ---
PT RESTING IN BED, EYES CLOSED AND RESPIRATIONS EVEN AND UNLABORED. PT STATES PAIN IS TOLERABLE. ASSESSMENT COMPLETED. PT DOES HAVE SOME MODERATE DISTENTION NOTED TO ABDOMEN WHICH PT STATES IS UNCHANGED. PT STATES HE STILL HASN'T HAD A REGULAR BM SINCE HE WAS ADMITTED TO THE HOSPITAL BUT DID HAVE A SMALL BM TODAY PT STATES HE FEELS COMFORTABLE, DENIES NAUSEA OR ABDOMINAL PAIN AT REST OR WITH PALPATION THOUGH HE DOES STATE HE STILL FEELS CONSTIPATED. CALL LIGHT/H20 IN REACH.
--- NOTE | 2018-05-12 21:22 | NUR ---
PT RESTING IN BED WATCHING TV. PT STATES PAIN IS TOLERABLE AT 1/10 AND DENIES NEED FOR OPIOD PAIN MEDICATION. HS MEDS ADMINISTERED AND BS CHECKED AND IS 124 REQUIRING NO COVERAGE. CALL LIGHT IN REACH AND PT PROVIDED WITH FRESH ICE WATER. NO FURHTER REQUESTS VERBALIZED.
--- NOTE | 2018-05-12 23:14 | NUR ---
BED ALARM WENT OFF. 1 PA TO THE BATHROOM AND BACK TO BED. BED ALARM ON.
--- NOTE | 2018-05-12 23:38 | NUR ---
PT RESTING IN BED ON RIGHT LATERAL SIDE. RESPIRATIONS VISABLE. PT APEPARS TO BE SLEEPING COMFORTABLY. CALL LIGHT AND H20 IN REACH.
--- NOTE | 2018-05-13 04:27 | NUR ---
PT RESTING IN BED, EYES CLOSED. PT APPEARS TO BE SLEEPING COMFORTABLY. CALL LIGHT/H20 IN TO BE SLEEPING COMFORTABLY. CALL LIGHT/H20 IN REACH.
--- NOTE | 2018-05-13 04:50 | NUR ---
PT HAD A GOOD NIGHT AND APPEARED TO SLEEP COMFORTABLY FOR THE MAJORITY OF THE NIGHT. VSS, VOIDEING QUANTITY SUFFICENT CLEAR YELLOW URINE. PT CALLED APPROPRIATLEY THROUGH THE NIGHT WHEN NEEDING TO GET UP. BED ALARM AND CHAIR ALARM WERE USED THIS SHIFT. PT HAS NOT HAD A BM YET THIS SHIFT AND ONLY HAD A SMALL BM ON 05/12 PT STATES HE STILL FEELS CONSTIPATED. BT'S ACTIVE X4, ABDOMEN IS FIRM WITH SOME DISTENTION NOTED. PT DENIES ABD PAIN AT REST OR WITH PALPATION. PT CONTINUES TO PASS FLATUS. PRN PO OPIODS HAVE BEEN ADEQUATLEY MANAGING PT'S PAIN. CONTINUE TO ENCOURAGE I.S. USE 10X PER HOUR WHILE PT AWAKE. 20 GUAGE IV PATENT TO Jase WATKINS AND UZAIR BS 124 AT HS SCAN. PT REMAINS 1 PERSON SBA WITH USE OF FWW.
--- NOTE | 2018-05-13 05:37 | NUR ---
ASSISTED PT TO BATHROOM AND BACK TO BED. ASKED IF HE WANTED PAIN MEDICATION, HE STATED IT IS AVAILABLE BUT I WILL WAIT TIL LATER AND TAKE ONE. ONCE AT REST RIB PAIN DECREASES.
--- NOTE | 2018-05-13 06:03 | NUR ---
IN TO SEE PATIENT PT REPORTS ELEVATED RIB PAIN WITH DEEP BREATHING. PRN OPIOD ADMINISTERED PO PER PT REQUEST. PT ALSO REPORTS PURITIS TO ANTERIOR BILAT FEET SO TOPICAL HYDROCORTISONE APPLIED PER PT REQUEST. PT UP TO AMBULATE 3 LAPS ARROUND NURSING STATIONS, PT TOLORATED AMBULATION WELL WITH 1 PERSON SBA AND FWW. PT AMBULATES AT BRISK PACE WITH STEADY GAIT. PT BACK TO CHAIR AND CHAIR ALARM ON WITH CALL LIGHT AND H20 IN REACH.
--- NOTE | 2018-05-13 07:55 | NUR ---
REPORT RECIEVED CRYSTAL SOLORZANO. PT SITTING UP IN CHAIR READY TO ORDER BREAKFAST. PT GIVEN OXY BY AIR CHIEF MARSHAL AND WALKED SEVERAL TIMES IN RODAS PER REPORT.
--- NOTE | 2018-05-13 09:06 | NUR ---
PATIENT UP TO BETHROOM AND BACK TO CHAIR 1 PERSON ASSIST. LINENS CHANGED. CALL LIGHT IN REACH. NO FURTHER NEEDS AT THIS TIME.
--- NOTE | 2018-05-13 09:22 | NUR ---
PATIENT UP TO BATHROOM AND BACK TO CHAIR, 1 PERSON ASSIST. CALL LIGHT IN REACH. NO FURTHER NEEDS AT THIS TIME.
--- NOTE | 2018-05-13 09:45 | NUR ---
ROUNDED ON PATIENT FOR MORNING MEDICATIONS AND ASSESSSMENT, RESTING COMFORTABLY IN CHAIR. PLAN TO WORK WITH PT DURING THIS TIME, ENEMA HELD UNTIL FINISHED WITH PT. NO MORE COMPLAINTS AT THIS TIME. CALL LIGHT AND POSSESSIONS WITHIN REACH.
--- NOTE | 2018-05-13 11:05 | NUR ---
PATIENT UP TO SHOWER CHAIR, 1 PERSON ASSIST. PATIENT INDEPENDENT IN SHOWER. NEW GOWN PROVIDED. PATIENT NOW BACK IN CHAIR, 1 PERSON ASSIST. FRESHWATER GIVEN. CALL LIGHT IN REACH. NO FURTHER NEEDS AT THIS TIME.
--- NOTE | 2018-05-13 11:20 | NUR ---
TALKED WITH PT THIS AM ABOUT WHERE HE WANTS TO GO WHEN HE IS DC'D. HE STATES HE THOUGHT HIS DAUGHTER WAS GOING TO ALLOW HIM TO STAY AT HER HOUSE NOW THAT ALL BUT ONE OF HER CHILDREN ARE OUT OF THE HOME AND SHE SAID HE CANNOT STAY THERE. HE IS NOT SURE OF THE REASON WHY BUT HE UNDERSTANDS THIS. PT IS WILLING TO TALK WITH RN FROM [facility], WHO STATES SHE WILL BE HERE AROUND 1230 TODAY. PT STATES TO ME THAT HE IS PERFECTLY SAFE TO GO HOME--I FELL BECAUSE MY DOG ACCIDENTLY TRIPPED ME OUT IN THE BACK YARD.
--- NOTE | 2018-05-13 12:26 | NUR ---
TALKED TO LEIGH ANN ALATORRE PTS DAUGHTER AT [phone] AND SHE SAYS SHE IS ON HER WAY HERE TO BE HERE WITH HIM WHILE [facility] EVALUATES HIM. SHE ALSO STATES THERE IS NO WAY HE CAN RETURN HOME. IT IS TOO UNSAFE SHE SAYS. STATES IT IS REAL DIFFICULT ON THE EMS TO HAVE TO CRAWL THROUGH THE WINDOWS TO GET INTO THE HOME AND THEN UP ON 4 FOOT OF GARBAGE. HE IS AN EXTREME HOARDER SHE STATES.
--- NOTE | 2018-05-13 12:55 | NUR ---
PT SITTING UP IN CHAIR TALKING TO CHELSIE FROM [facility]. PT WOULD LIKE TO CONTINUE TO HOLD ENEMA UNTIL LATER WHEN HE DOES NOT HAVE VISITORS OR THERAPYS. WILL ADMINISTER AFTER INTERVIEW.
--- NOTE | 2018-05-13 13:12 | NUR ---
PATIENT UP IN CHAIR. COMPANY BEDSIDE. CALL LIGHT IN REACH. NO FURTHER NEEDS AT THIS TIME.
--- NOTE | 2018-05-13 13:23 | NUR ---
ROUNDED ON PATIENT TO ASSESS PAIN, RADHA WANTING PAIN MEDICATION. PATIENT SITTING UP IN CHAIR, WITH VISITORS NEARBY. POSSESSIONS WITHIN REACH. NO COMPLAINTS AT THIS TIME.
--- NOTE | 2018-05-13 13:57 | NUR ---
ADMINISTERED ENEMA. PT TOLERATED WELL AND WILL CALL WHEN HE CAN'T HOLD IT ANYMORE. DR FERNANDEZ NOW IN ROOM. PT EDUCATED ON HOLDING IT IN LONG POSSIBLE FOR MAXIMUM EFFECT.
--- NOTE | 2018-05-13 14:20 | NUR ---
MET EVELIA PT'S DAUGHTER LENNOX. SHE IS HERE TO GET ARRANGEMENTS MADE FOR [facility]-PT'S CHOICE. SHE ALSO MENTIONED THAT HE WANTED HER TO HAVE POWER OF TAXICAB STARTER AND THAT IF SHE ARRANGED IT HE WOULD SIGN. SHE IS FOLLOWING THROUGH. SHE FEELS GUILTY NOT HAVING PT IN HER HOME, BUT HIS NEEDS AND HER ABILITY TO PROVIDE WHAT HE NEEDS IS SOMEWHAT LIMITED. WE DISCUSSED THAT "HONORING" DOESN'T ALWAYS MEAN HAVING THEM LIVE WITH YOU-BUT TAKING CARE OF THEIR NEEDS AND HONORING THEIR WISHES WELL. WILL FOLLOW NEEDED
--- NOTE | 2018-05-13 15:20 | NUR ---
ROUNDED ON PATIENT FOR AFTERNOON ASSESSMENT AND MEDICATION ADMINISTRATION. MOVED UP TO CHAIR. AMBULATED TO BATHROOM WITH 1PA, SITTING COMFORTABLY IN CHAIR. CALL LIGHT WITHIN REACH. POSSESSIONS NEARBY. NO REQUESTS FOR ADDITONAL PAIN MEDICATION. WILL CONTINUE TO MONITOR.
--- NOTE | 2018-05-13 17:32 | NUR ---
ROUNDED ON PATIENT, USING RESTROOM. EDUCATED PATIENT ON USING CALL LIGHT TO ENSURE SAFETY, PATIENT EXPRESSED UNDERSTANDING. NOW RESTING IN CHAIR. FINISHED DINNER. POSSESSIONS AT BEDSIDE. NO COMPLAINTS OF PAIN. CALL LIGHT WITHIN REACH.
--- NOTE | 2018-05-13 17:45 | NUR ---
CHAIR ALARM ON.
--- NOTE | 2018-05-13 17:49 | NUR ---
PATIENT UP IN CHAIR. FRESH WATER GIVEN. CALL LIGHT IN REACH. NO FURTHER NEEDS AT THIS TIME.
--- NOTE | 2018-05-13 17:49 | NUR ---
OFFERED PT PRUNE JUICE FOR PROMOTING STOOL. PT DECLINED.
--- NOTE | 2018-05-13 18:22 | NUR ---
PATIENT ALERT AND ORIENTED X4. ACCU CHECK WITH SLIDING SCALE WITH MEALS. SALINE LOCKED. 1PA WITH FWW. PAIN MANAGED WITH TYLENOL. COMPLAINED OF ABDOMINAL DISCOMFORT DUE TO INABILITY TO PRODUCE SUFFICIENT BM, EMENA PERFORMED, MIRALAX AND SENOKOT ADMINISTERED, VERY LITTLE STOOL PRODUCED. XRAY SHOWED SMALL MODERATE AMOUNT OF STOOL IN RIGHT COLON. CHAIR AND BED ALARM, EDUCATION PROVIDED RANCH COOK LIGHT USAGE, CONTINUED TO REINFORCE. WORKED WITH PT TODAY. CASE MANAGEMENT CONSULT TODAY. PLAN TO DISCHARGE TOMORROW TO [facility].
--- NOTE | 2018-05-13 19:25 | NUR ---
RECEIVED REPORT FROM CRYSTAL MOLINA. PT SITTING UP IN CHAIR WITH CHAIR ALARM ON. IV SALINE LOCKED. CALL LIGHT IN REACH. NO NEEDS AT THIS TIME.
--- NOTE | 2018-05-13 21:13 | NUR ---
ASSESSMENT COMPLETE. CRACKLES BILATERAL LOWER LOBES, PT INSTRUCTED TO USE IS X2, 1750 BEST EFFORT. PT GIVEN SCHEDULED PAIN MEDICATIONS FOR PAIN 7/10 IN RIBS WITH MOVEMENT. PT REFUSES ADDITIONAL PAIN MEDICATIONS. CHRONIC NUMBNESS AND TINGLING IN RIGHT UPPER AND LOWER EXTREMITIES. SBA TO RESTROOM TO VOID. BED ALARM ON. RN CLINICAL RESOURCE'S IN ROOM TO COMPLETE VITALS. ICE WATER GIVEN, NO FURTHER REQUESTS AT THIS TIME.
--- NOTE | 2018-05-13 23:00 | NUR ---
CRYSTAL BERMEO RESPONDED TO BED ALARM. PT REQUESTED TO USE BATHROOM.
--- NOTE | 2018-05-13 23:00 | NUR ---
KHLOE JOSE, PT WANTED TO USE BATHROOM. ASKED PT TO USE HIS CALL LIGHT VS JUST GETTING UP. STEADY ON FEET TO AMBULATE TO BR, AND BACK TO BED. ENCOURAGE PT TO USE CALL LIGHT, BED ALARM ON FOR SAFETY.
--- NOTE | 2018-05-14 00:29 | NUR ---
RESPONDED TO CALL LIGHT. PT REQUESTEE TO USE THE BATHROOM. STAND BY ASSIST WITH FWW TO RESTROOM TO VOID. PT RETURNED TO BED, BED ALARM ON, CALL LIGHT IN REACH.
--- NOTE | 2018-05-14 03:16 | NUR ---
CHECKED ON PT, APPEARS TO BE SLEEPING, RR 18. BED ALARM ON. CALL LIGHT NEXT TO PT.
--- NOTE | 2018-05-14 03:25 | NUR ---
RESPONDING TO CALL LIGHT. PT REQUESTED TO USE RESTROOM. SBA WITH FWW TO VOID X1. ASSESSMENT COMPLETE. PT STATES PAIN IS 10+/10 WHEN GETTING OUT OF BED, HOWEVER, DECLINES PAIN MEDICATIONS AT THIS TIME. CALL LIGHT IN REACH, NO FURTHER REQUESTS AT THIS TIME.
--- NOTE | 2018-05-14 04:45 | NUR ---
RESPONDED TO BED ALARM. PT REQUESTED PRN PAIN MEDICATION FOR PAIN 14/10 LOCATED AROUND HIS RIBS. PT TRANSFERRED TO CHAIR WITH 1 PERSON SBA AND FWW. ICE WATER GIVEN, CALL LIGHT IN REACH, CHAIR ALARM ON.
--- NOTE | 2018-05-14 05:40 | NUR ---
ALERT AND ORIENTED X3. SCHEDULED AND PRN PAIN MEDICATIONS GIVEN FOR RIB PAIN WITH MOVEMENT. 1 PERSON SBA WITH FWW TO RESTROOM. ABD TENDER, FIRM, AND DISTENDED, BOWEL PREP ADMINISTERED PRESCRIBED. IV SALINE LOCKED. CHAIR AND BED ALARM ON, USING CALL LIGHT APPROPRIATELY.
--- NOTE | 2018-05-14 06:27 | NUR ---
PT SLEEPING, EASY TO AWAKEN. STATES PAIN IS "BETTER" AND RATED IT 3/10. CALL LIGHT IN REACH AND BED ALARM ON.
--- NOTE | 2018-05-14 07:29 | NUR ---
BEDSIDE REPORT FROM MEGHA ROJAS.. PT RESTING QUIELTY IN BED EYES CLOSED RR EVEN AT RR 17, NO DISTRESS NOTED. PT APPEARS TO BE SLEEPING.
--- NOTE | 2018-05-14 07:54 | NUR ---
PATIENT UP TO BATHROOM AND BACK TO CHAIR 1 PERSON ASSIST FWW. BED CHANGED. PATIENT EATING BREAKFAST CALL LIGHT IN REACH. NO FURTHER NEEDS AT THIS TIME.
--- NOTE | 2018-05-14 08:50 | NUR ---
PT UP TO RECLINER EATING BREAKFAST. REPORTS PAIN IS TOLERABLE AT THIS TIME, HE DENIES NEED FOR PAIN REPORTS 1-2/10 PAIN. DISCUSSED WITH PT WALKING IN HALLS TODAY.
[2018-05-14] MEDS ORDERED: LOSARTAN POTAS100 MG PO (09:19)
[2018-05-14] MEDS ORDERED: MAPAP500 M1 PO (09:20)
[2018-05-14] MEDS ORDERED: BISAC-EVAC10 MG PR (09:20)
[2018-05-14] MEDS ORDERED: MIRALAX17 GM PO (09:20)
[2018-05-14] MEDS ORDERED: PROCTOSOL-HC30 GM TOP (09:21)
[2018-05-14] MEDS ORDERED: SENNA LAX8.6 MG PO (09:21)
[2018-05-14] MEDS ORDERED: OXYCODONE HCL5 MG PO (09:22)
--- NOTE | 2018-05-14 09:44 | NUR ---
DISCUSSED WITH THE NEW ORDERS FOR LOSARTAN, SAID TO HOLD 100MG TO START TOMORROW AM, GIVE ADDITIONAL 25MG AT THIS TIME
--- NOTE | 2018-05-14 11:58 | NUR ---
PT UP TO VOID THEN TO RECLINER TO EAT LUNCH. PT DENIES FOR PAIN COVERAGE AT THIS TIME.
--- NOTE | 2018-05-14 12:09 | NUR ---
PATIENT UP IN CHAIR EATING LUNCH. CALL LIGHT IN REACH. NO FURTHER NEEDS AT THIS TIME.
--- NOTE | 2018-05-14 13:30 | NUR ---
PT OFFERED SUPPOSITORY AT THIS TIME. PT REFUSED.
--- NOTE | 2018-05-14 13:47 | NUR ---
PT SITTING IN CHAIR, GRIMACES UPON MOVEMENT BUT DIDNOT COMPLAIN. MENTIONED HE IS GOING TO BE MOVING TO [facility]-TRANSITIONING FROM HIS HOME. BIG MOVE FOR HIM, HE ALSO DECIDED TO DO THIS SO HE SAID HE WOULDN'T BE SO MUCH OF A BURDEN ON HIS DAUGHTER. PLEASANT VISIT, EXTENDED A BLESSING AND WILL FOLLOW NEEDED
--- NOTE | 2018-05-14 14:00 | NUR ---
PATIENT SITTING IN CAHIR, FAMILY BED SIDE. CALL LIGHT IN REACH. NO OTHER NEEDS AT THIS TIME.
--- NOTE | 2018-05-14 15:23 | NUR ---
PT DAKSHA ABBASILINER SLEEPING ALERT TO NAME. PT ADMINSITERED TYLENOL 650MG AT THIS TIME FOR PAIN MANAGEMENT OF FX RIBS
--- NOTE | 2018-05-14 15:24 | NUR ---
AFTER DAUGHTER LEIGH ANN SHOWING ME PICTURES OF THE PTS LIVING SITUATION. I CALLED DEPARTMENT ON HUMAN SERVICES, APS, TALKED WITH RAJINDER FERMIN. INFORMED HIM OF THE ISSUES WITH THE PTS HOME AND THE UNSAFE CONDITIONS THERE. I ALSO TOLD HIM THAT AT THIS TIME THE PT IS NOT RETURNING HOME HE IS GOING TO GO TO [facility].
--- NOTE | 2018-05-14 17:10 | NUR ---
PT HAS BEEN UP AMBULATING IN HALLS TODAY, HE REFUSED SUPPOSITORY, WAS GIVEN MIRLAX AND SENNA LAX. NO BM TODAY ABD DISTENDED. KUB YESTURDAY SHOWED NO OBSTRUCTION. HE HAS DENIED NEED FOR PAIN COVERAGE WITH OXYCODONE HAS BEEN ADMINISTERED TYLENOL SCHEDULED. V/S. DISCHARGE ORDER IN, WAITING FOR DAUGHTER TO ARRIVED TO TRANSPORT TO [facility].
--- NOTE | 2018-05-14 18:38 | NUR ---
PT UP AMBULATING IN HALLS AT THIS TIME WITH PRODUCTION COOK STANDBY ASSIST TOELRATING ACTIVITY WELL.
--- NOTE | 2018-05-14 19:45 | NUR ---
REPORT RECEIVED FROM CRYSTAL KEN. VITALS STABLE. WRITTEN AND VERBAL INSTRUCTIONS FOR DISCHARGE PROVIDED TO PT AND FAMILY, PRESCRIPTION WITH DAUGHTER LENNOX. PT ESCORTED BY NURSING STAFF VIA WHEELCHAIR TO [employer] FOR TRANSFER. PT TOLERATED WELL.
== END 2018-05-14 19:45 | disposition home or self-care (01) | DRG 185 ==
LOC: ED 18:37 → MS 23:07
PROVIDERS: ADMIT Internal Medicine
DX: S22.43XA Multiple fractures of ribs, bilateral, initial encounter for closed fracture (principal); W18.30XA Fall on same level, unspecified, initial encounter; I10 Essential (primary) hypertension; K59.00 Constipation, unspecified; Z86.73 Personal history of transient ischemic attack (TIA), and cerebral infarction without residual deficits; E78.5 Hyperlipidemia, unspecified; G47.33 Obstructive sleep apnea (adult) (pediatric); F32.9 Major depressive disorder, single episode, unspecified; Z85.46 Personal history of malignant neoplasm of prostate; F17.210 Nicotine dependence, cigarettes, uncomplicated; E86.0 Dehydration; F10.20 Alcohol dependence, uncomplicated
CPT/HCPCS: 36415; 70450; 71046; 74018; 80048; 80053; 81001; 82550; 83735; 84100; 85025; 92610; 96360; 97110; 97116; 97162; 97535; 99285; 99406; J1815; J2270; J3411; J7030

== ENCOUNTER 2019-05-03 12:30 | Emergency (ER) | payer MEDICARE ==
[~2019-05-03] VITALS: Ht 180.3 cm; Wt 72.6 kg
[~2019-05-03 12:30] MED LIST changes: +BISAC-EVAC10 MG PR; +LOSARTAN POTAS100 MG PO; +MAPAP500 M1 PO; +MIRALAX17 GM PO; +OXYCODONE HCL5 MG PO; +PRESERVISION A1 EAC3 PO; +PROCTOSOL-HC30 GM TOP; +PROZAC10 MG PO; +SENNA LAX8.6 MG PO
--- NOTE | 2019-05-04 07:59 | EKG ---
[facility] [address] [place] [address] Signed Sinus rhythm with 1st degree AV block with occasional premature ventricular complexes and premature atrial complexes Left axis deviation Abnormal ECG No previous ECGs available Confirmed by ALLY ABDUL MD ([id number]) on 05/04/2019 7:58:56 AM Electronically Signed By: ALLY ABDUL MD 05/04/19 0759 PATIENT NAME: TISHABERTIN ASHUTOSH Electrocardiogram DATE OF : 37 PHYSICIAN: ALLY ABDUL MD REPORT #: [id number] REPORT IS CONFIDENTIAL AND NOT TO BE RELEASED WITHOUT AUTHORIZATION
== END 2019-05-03 15:18 | disposition home or self-care (01) ==
LOC: ED 12:30
DX: S02.2XXA Fracture of nasal bones, initial encounter for closed fracture (principal); I10 Essential (primary) hypertension; E78.5 Hyperlipidemia, unspecified; E11.9 Type 2 diabetes mellitus without complications; K21.9 Gastro-esophageal reflux disease without esophagitis; F32.9 Major depressive disorder, single episode, unspecified; F17.200 Nicotine dependence, unspecified, uncomplicated; Z85.46 Personal history of malignant neoplasm of prostate; Z88.2 Allergy status to sulfonamides; Z88.8 Allergy status to other drugs, medicaments and biological substances; Z79.899 Other long term (current) drug therapy; Z79.82 Long term (current) use of aspirin; Z79.84 Long term (current) use of oral hypoglycemic drugs; W18.30XA Fall on same level, unspecified, initial encounter
CPT/HCPCS: 70450; 70486; 72125; 80053; 84484; 85025; 93005; 93010; 99284-25; G0480

== ENCOUNTER 2019-05-08 11:25 | Emergency (ER) | payer MEDICARE ==
[~2019-05-08] VITALS: Ht 180.3 cm; Wt 72.6 kg
--- OUTSIDE RECORDS SUMMARY | 2019-05-08 11:28 | XMS ---
PreManage Notification: BERTIN GILES Security Yarn Worker Events No recent Security Events currently on file CRITERIA MET - [facility] - 2 Visits in 30 Days CARE PROVIDERS Cuate Cornelius MD Primary Care Current PHONE: Unknown ordeepthi Case or An Employee Sponsor Or Advocate And Current PHONE: Unknown Berry CORNELIUS Current PHONE: Unknown José has no Care Guidelines for this patient. Terry VISIT COUNT (12 MO.) [address] [facility] TOTAL 3 NOTE: Visits indicate total known visits. ED/UCC VISIT TRACKING (12 MO.) 05/08/2019 11:25 [facility] [place] TYPE: Emergency COMPLAINT: - NOSE BLEED 05/03/2019 12:31 [facility] [place] TYPE: Emergency COMPLAINT: - NECK PAIN, INJ DIAGNOSES: - Fall on same level, unspecified, initial encounter - Allergy status to sulfonamides status - Nicotine dependence, unspecified, uncomplicated - Gastro-esophageal reflux disease without esophagitis - MCC (current) use of aspirin - Essential (primary) hypertension - Unspecified injury of face, initial encounter - Hyperlipidemia, unspecified - MCC (current) use of oral hypoglycemic drugs - Type 2 diabetes mellitus without complications - Personal history of malignant neoplasm of prostate - Major depressive disorder, single episode, unspecified - Allergy status to other drugs, medicaments and biological substances status - Fracture of nasal bones, initial encounter for closed fracture - Other rodent exterminator (current) drug therapy 05/08/2018 18:37 [facility] [place] TYPE: Emergency COMPLAINT: - GLF INPATIENT VISIT TRACKING (12 MO.) 05/08/2018 23:07 [facility] [place] TYPE: Medical Surgical COMPLAINT: - LILATERAL RIB FX,DEHYDRATION DIAGNOSES: - Personal history of transient ischemic attack (TIA), and cerebral infarction without residual deficits - Obstructive sleep apnea (adult) (pediatric) - Fall on same level, unspecified, initial encounter - Major depressive disorder, single episode, unspecified - Multiple fractures of ribs, bilateral, initial encounter for closed fracture - Essential (primary) hypertension - Hyperlipidemia, unspecified - Personal history of malignant neoplasm of prostate - Dehydration - Constipation, unspecified - Nicotine dependence, cigarettes, uncomplicated - Alcohol dependence, uncomplicated [email or web address]
== END 2019-05-08 13:55 | disposition home or self-care (01) ==
LOC: ED 11:25
PROC: 2Y41X5Z Packing of Nasal Region using Packing Material (ICD-10-PCS; principal; 2019-05-08)
DX: R04.0 Epistaxis (principal); I10 Essential (primary) hypertension; E78.5 Hyperlipidemia, unspecified; E11.9 Type 2 diabetes mellitus without complications; K21.9 Gastro-esophageal reflux disease without esophagitis; F32.9 Major depressive disorder, single episode, unspecified; F17.200 Nicotine dependence, unspecified, uncomplicated; Z85.46 Personal history of malignant neoplasm of prostate; Z88.2 Allergy status to sulfonamides; Z88.8 Allergy status to other drugs, medicaments and biological substances; Z79.82 Long term (current) use of aspirin; Z79.899 Other long term (current) drug therapy
CPT/HCPCS: 30903; 85025; 85610; 85730; 99283-25

== ENCOUNTER 2019-05-10 07:56 | Emergency (ER) | payer MEDICARE ==
[~2019-05-10] VITALS: Ht 180.3 cm; Wt 72.6 kg
--- OUTSIDE RECORDS SUMMARY | 2019-05-10 07:58 | XMS ---
PreManage Notification: BERTIN GILES Security Travel Clerk Events No recent Security Events currently on file CRITERIA MET - [facility] - 2 Visits in 30 Days CARE PROVIDERS Cuate Cornelius MD Primary Care Current PHONE: Unknown ordeepthi Case or Criminal Research Specialist Current PHONE: Unknown Berry CORNELIUS Current PHONE: Unknown José has no Care Guidelines for this patient. Terry VISIT COUNT (12 MO[address] [facility] TOTAL 3 NOTE: Visits indicate total known visits. ED/UCC VISIT TRACKING (12 MO.) 05/10/2019 07:56 [facility] [place] TYPE: Emergency COMPLAINT: - BLOODY NOSE 05/08/2019 11:25 [facility] [place] TYPE: Emergency COMPLAINT: - NOSE BLEED 05/03/2019 12:[address] [facility] [place] TYPE: Emergency COMPLAINT: - NECK PAIN, INJ DIAGNOSES: - Fall on same level, unspecified, initial encounter - Allergy status to sulfonamides status - Nicotine dependence, unspecified, uncomplicated - Gastro-esophageal reflux disease without esophagitis - rn long term care (current) use of aspirin - Essential (primary) hypertension - Unspecified injury of face, initial encounter - Hyperlipidemia, unspecified - rn long term care (current) use of oral hypoglycemic drugs - Type 2 diabetes mellitus without complications - Personal history of malignant neoplasm of prostate - Major depressive disorder, single episode, unspecified - Allergy status to other drugs, medicaments and biological substances status - Fracture of nasal bones, initial encounter for closed fracture - Other remote computer terminal operator (current) drug therapy INPATIENT VISIT TRACKING (12 MO.) No inpatient visits to display in this time frame [email or web address]
== END 2019-05-10 10:30 | disposition short-term general hospital (02) ==
LOC: ED 07:56
DX: R04.0 Epistaxis (principal); S09.93XD Unspecified injury of face, subsequent encounter; W19.XXXD Unspecified fall, subsequent encounter; I10 Essential (primary) hypertension; E78.5 Hyperlipidemia, unspecified; E11.9 Type 2 diabetes mellitus without complications; K21.9 Gastro-esophageal reflux disease without esophagitis; F32.9 Major depressive disorder, single episode, unspecified; F17.200 Nicotine dependence, unspecified, uncomplicated; Z88.2 Allergy status to sulfonamides; Z88.8 Allergy status to other drugs, medicaments and biological substances; Z79.899 Other long term (current) drug therapy; Z79.4 Long term (current) use of insulin; Z79.82 Long term (current) use of aspirin; Z85.46 Personal history of malignant neoplasm of prostate
CPT/HCPCS: 30903; 36430; 80053; 85025; 85610; 85730; 86850; 86900; 86901; 86920; 99284-25; J7040

== ENCOUNTER 2020-02-29 14:53 | Emergency (ER) | payer MEDICARE ==
[~2020-02-29] VITALS: Ht 177.8 cm; Wt 72.6 kg
[~2020-02-29 14:53] MED LIST changes: +CENTRUM SILVER1 EAC6 PO; +FIBER0.52 GM; +MIRTAZAPINE30 M1 PO; +TOPROL XL50 MG PO
--- OUTSIDE RECORDS SUMMARY | 2020-02-29 14:56 | XMS ---
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 Care History Medical/Surgical 05/12/2019 [facility] - Patient is currently established with [facility]. If patient is seen in the ED during business hours. Please contact [facility] at [facility]. Care Recommendation: This patient has had 5 or more Emergency Department visits in the last 12 months.\T\nbsp; Patient requires education on the scope and purpose of the ED as an acute care provider not a Primary Care Provider and should not be utilized for chronic conditions.\T\nbsp; These are guidelines and the provider should exercise clinical judgment when providing care. E.D. [facility] COUNT (12 MO.) [facility] NOTE: Visits indicate total known visits. ED/UCC VISIT TRACKING (12 MO.) 02/29/2020 14:54 SH[facility] Szymanski TYPE: Emergency COMPLAINT: - BURN 05/10/2019 10:59 Bran LEVINE TYPE: Emergency COMPLAINT: - NOSEBLEED/EPISTAXIS 05/10/2019 07:56 [facility] [place] TYPE: Emergency COMPLAINT: - BLOODY NOSE DIAGNOSES: - Allergy status to sulfonamides status - Hyperlipidemia, unspecified - Nicotine dependence, unspecified, uncomplicated - Type 2 diabetes mellitus without complications - Allergy status to other drugs, medicaments and biological sub - Essential (primary) hypertension - Gastro-esophageal reflux disease without esophagitis - Personal history of malignant neoplasm of prostate - Unspecified injury of face, subsequent encounter - Other correction (current) drug therapy - Epistaxis - Major depressive disorder, single episode, unspecified - 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 - snf (current) use of aspirin - Unspecified fall, subsequent encounter 05/08/2019 11:25 [facility] [place] TYPE: Emergency COMPLAINT: - NOSE BLEED DIAGNOSES: - 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 - Epistaxis - Allergy status to sulfonamides status - Hyperlipidemia, unspecified - Personal history of malignant neoplasm of prostate - Other family dentist (current) drug therapy - Gastro-esophageal reflux disease without esophagitis - Essential (primary) hypertension - Type 2 diabetes mellitus without complications - Nicotine dependence, unspecified, uncomplicated - Allergy status to other drugs, medicaments and biological sub - Major depressive disorder, single episode, unspecified 05/03/2019 12:31 [facility] [place] TYPE: Emergency COMPLAINT: - NECK PAIN, INJ DIAGNOSES: - Fall on same level, unspecified, initial encounter - Allergy status to sulfonamides status - Nicotine dependence, unspecified, uncomplicated - Gastro-esophageal reflux disease without esophagitis - snf (current) use of aspirin - Essential (primary) hypertension - Unspecified injury of face, initial encounter - Hyperlipidemia, unspecified - snf (current) use of oral hypoglycemic drugs - Type 2 diabetes mellitus without complications - Personal history of malignant neoplasm of prostate - Major depressive disorder, single episode, unspecified - Allergy status to other drugs, medicaments and biological sub - Fracture of nasal bones, initial encounter for closed fractur - Other family dentist (current) drug therapy INPATIENT VISIT TRACKING (12 MO.) No inpatient visits to display in this time frame [email or web address]
[2020-02-29] MEDS ORDERED: NORCO 5-325 TA1 EACH PO (17:43)
== END 2020-02-29 18:14 | disposition home or self-care (01) ==
LOC: ED 14:53
DX: T20.00XA Burn of unspecified degree of head, face, and neck, unspecified site, initial encounter (principal); T20.07XA Burn of unspecified degree of neck, initial encounter; I10 Essential (primary) hypertension; E11.9 Type 2 diabetes mellitus without complications; K21.9 Gastro-esophageal reflux disease without esophagitis; E78.5 Hyperlipidemia, unspecified; G47.33 Obstructive sleep apnea (adult) (pediatric); F17.200 Nicotine dependence, unspecified, uncomplicated; Z88.2 Allergy status to sulfonamides; Z88.8 Allergy status to other drugs, medicaments and biological substances; Z79.899 Other long term (current) drug therapy; X08.8XXA Exposure to other specified smoke, fire and flames, initial encounter
CPT/HCPCS: 80053; 85025; 96374; 96376; 99283-25; J3010; J7040

== ENCOUNTER 2022-04-13 10:34 | Emergency (ER) | payer OTHER ==
[~2022-04-13] VITALS: Ht 177.8 cm; Wt 69.8 kg
--- NOTE | ~2022-04-13 | EKG ---
[facility] [address] [place], [place] [address] Draft EK completed, results pending confirmation PATIENT NAME: TISHABERTIN Electrocardiogram DATE OF : 37 PHYSICIAN: PRELIMINARY REPORT #: [id number] REPORT IS CONFIDENTIAL AND NOT TO BE RELEASED WITHOUT AUTHORIZATION
[~2022-04-13 10:34] MED LIST changes: +ADULT LOW DOSE81 MG PO; +ALENDRONATE SOD70 MG PO; -ASPIR-TRIN325 MG PO; +CALCIUM CARBON600 M1 PO; +COZAAR100 MG PO; +FERRACTIV IRON1 EACH PO; -FIBER0.52 GM; +FIBER0.52 GM PO; +HYDROCHLOROTH12.5 MG PO; +NORCO 5-325 TA1 EACH PO; +PRESERVISION A1 EAC4 PO; -VITAMIN D-32000 UNI1 PO; +VITAMIN D350 MC3 PO
[2022-04-13] MEDS ORDERED: ARTHRITIS PAIN50 GM TOP (10:52)
[2022-04-13] MEDS ORDERED: FEOSOL45 MG PO (10:53)
== END 2022-04-13 18:02 | disposition short-term general hospital (02) ==
LOC: ED 10:34
DX: I71.4 Abdominal aortic aneurysm, without rupture (principal); Z20.822 Contact with and (suspected) exposure to COVID-19; I10 Essential (primary) hypertension; E78.5 Hyperlipidemia, unspecified; G47.33 Obstructive sleep apnea (adult) (pediatric); E11.9 Type 2 diabetes mellitus without complications; K21.9 Gastro-esophageal reflux disease without esophagitis; F17.200 Nicotine dependence, unspecified, uncomplicated; Z88.2 Allergy status to sulfonamides; Z88.8 Allergy status to other drugs, medicaments and biological substances; Z79.899 Other long term (current) drug therapy
CPT/HCPCS: 36415; 71275; 74174; 80053; 85025; 87502; 93005; 93010; 96361; 99285-25; C9803; J7030; J7060; U0003

== ENCOUNTER 2023-01-30 15:08 | Emergency (ER) | payer MEDICARE ==
[~2023-01-30] VITALS: Ht 177.8 cm; Wt 69.9 kg
[~2023-01-30 15:08] MED LIST changes: +ARTHRITIS PAIN50 GM TOP; +FEOSOL45 MG PO
[2023-01-30] MEDS ORDERED: HYDROCODON-ACE1 EA10 PO (19:56)
[2023-01-30 19:59] VITALS: BP 155/78
== END 2023-01-30 20:00 | disposition home or self-care (01) ==
LOC: ED 15:08
DX: M47.816 Spondylosis without myelopathy or radiculopathy, lumbar region (principal); I71.40 Abdominal aortic aneurysm, without rupture, unspecified; I10 Essential (primary) hypertension; E11.9 Type 2 diabetes mellitus without complications; F17.210 Nicotine dependence, cigarettes, uncomplicated; K21.9 Gastro-esophageal reflux disease without esophagitis; E78.5 Hyperlipidemia, unspecified; Z88.2 Allergy status to sulfonamides; Z88.8 Allergy status to other drugs, medicaments and biological substances; Z79.899 Other long term (current) drug therapy; Z79.82 Long term (current) use of aspirin
CPT/HCPCS: 36415; 72131; 74174; 74175; 80053; 85025; 99284-25; J1170; Q9967